=== PATIENT | female | born 1955 | race Caucasian/White ===

== ENCOUNTER 2016-11-17 10:46 | Observation (INO) | payer MEDICARE, MEDICAID ==
[~2016-11-17] VITALS: Ht 160 cm; Wt 111.4 kg
--- NOTE | ~2016-11-17 | DS ---
PATIENT'S NAME: BIMAL SCHROEDER [facility] AGE: 61 Y [address] ROOM: [place] [address] LOCATION: [facility] [place] ADMIT DATE: 11/17/2016 Discharge Summary DISCHARGE DATE: 11/19/2016 FAMILY PHYSICIAN: Chapo Powell MD ATTENDING PHYSICIAN: Chapo Powell FINAL DIAGNOSES: 1. Acute exacerbation of chronic obstructive pulmonary disease. 2. Hypoxemic respiratory failure secondary to acute exacerbation of chronic obstructive pulmonary disease. 3. Exogenous obesity. HOSPITAL COURSE: The patient was admitted for the above. Please see history and physical. Please see consult notes of Dr. Hauser, pole sander operator. The patient improved slowly. She is felt to reach maximal hospital benefit on 11/19/2016 and is dismissed to home. There she can have diet as tolerated and activities as tolerated. She was dismissed on the med list shown. She will see me back in the office in one week. Earlier if problems. CHAPO POWELL MD CALENDERING MACHINE OPERATOR/modl /[id number] d: 11/19/162014 t: 11/26/16 1033, DISCHARGE SUMMARY
--- NOTE | ~2016-11-17 | CON ---
PATIENT'S NAME: BIMAL SCHROEDER [facility] AGE: 61 Y [address] ROOM: [place] [address] LOCATION: [facility] [place] ADMIT DATE: 11/17/2016 Consultation DISCHARGE DATE: 11/19/2016 FAMILY PHYSICIAN: Chapo Anthony MD ATTENDING PHYSICIAN: Chapo Anthony DATE OF CONSULTATION: 11/17/2016 INDICATION: COPD exacerbation. HISTORY OF PRESENT ILLNESS: This is a 61-year-old female admitted for increased shortness of breath. She has a history of severe asthma and COPD, morbid obesity, and JASNO who reports worsening shortness of breath that started 2 weeks ago. She reports that it initially improved with increased DuoNeb use which she did on her own and then a few days ago things seemed to worsen after she had been exposed to her ill sister. She notes a very harsh dry cough with wheezing and a fever up to 100 the last 2 days. She notes that her oxygen saturations have been down to 88% at home. They are currently 91% to 92% on room air. PFTs performed last in November 2015 showed a mixture of obstructive and restrictive disease. She reports that she has only had one exacerbation since last year, which she was treated as an outpatient with prednisone. She reports that because of the illness symptoms, she has not been using her CPAP for the last few weeks. She otherwise is very faithful about using her CPAP. At home, she typically does Advair 250/50, DuoNeb twice a day, and albuterol twice a day. She denies any chest pain, lightheadedness, hemoptysis, or edema. PAST MEDICAL HISTORY: Severe asthma/COPD, morbid obesity, JASON, and nocturnal hypoxia. ALLERGIES: SEE MAR. MEDICATIONS: See MAR. FAMILY HISTORY: Negative for cardiac or lung disease. SOCIAL HISTORY: She is and lives here in [place]. She is a current every day smoker. She denies any alcohol use. REVIEW OF SYSTEMS: PATIENT'S NAME: BIMAL SCHROEDER [facility] AGE: 61 Y [address] ROOM: [place] [address] LOCATION: [facility] [place] ADMIT DATE: 11/17/2016 Consultation DISCHARGE DATE: 11/19/2016 FAMILY PHYSICIAN: Chapo Anthony MD ATTENDING PHYSICIAN: Chapo Anthony Twelve-point review of systems is negative except for what is noted in the HPI. PHYSICAL EXAMINATION: VITAL SIGNS: Blood pressure 112/75, pulse 68, respirations 22, temp 98.7. GENERAL: This is a 61-year-old morbidly obese female who is alert and oriented x3 and appears in no acute distress at the time of the exam. HEENT. Head: Normocephalic and atraumatic. Eyes: Clear. NECK: Supple. No adenopathy. No carotid bruits or JVD. LUNGS: With diffuse bilateral wheezing. HEART: Regular rate and rhythm without murmur, gallop, or rub. ABDOMEN: Soft, nontender, and nondistended. Bowel sounds x4. EXTREMITIES: No cyanosis, clubbing, or edema. DIAGNOSTIC DATA: No data is available currently as lab work is pending. ASSESSMENT: 1. Chronic obstructive pulmonary disease exacerbation most likely due to intercurrent illness with increased wheezing and shortness of breath. 2. Obstructive sleep. Usually on CPAP, but not able to tolerate it now due to #1. 3. Morbid obesity. PLAN: We will start IV steroids and antibiotic and check respiratory viral panel. Flu swab has been negative. We will hold off on CPAP usage for now due to illness. We will order bronchodilators around the clock and as needed for increased shortness of breath. She will otherwise continue with her inhaled corticosteroid and long-acting beta agonist. Further recommendations will be made pending her stay. Thank you for the consult and opportunity to participate in patient's care. MARY VARELA APRN FOR MD JOAQUIM COTE/cortes /[id number] d: 12/05/16 0002 t: 12/06/16 0742, CONSULTATION REPORT
[~2016-11-17 10:46] MED LIST: ADVAIR 250-501 EACH INH; ALEVE220 MG PO; CEFTIN500 MG PO; DALIRESP500 MCG PO; DELTASONE10 MG PO; DELTASONE20 M1 PO; DELTASONE20 MG PO; IPRAT-ALBUT 0.5-3 ML INH; ONE DAILY FOR1 EAC3 PO; OXYGEN INH; PROAIR HFA8.5 GM INH; SINGULAIR10 MG PO; SPIRIVA HANDIHA1 KIT INH; SPIRIVA18 MCG INH; TESSALON PERLE100 MG PO; ZITHROMAX250 MG PO
[2016-11-17] MEDS ORDERED: PROAIR HFA8.5 GM INH (11:46)
[2016-11-17] MEDS ORDERED: DUONEB INH (11:47)
[2016-11-17 17:37] LABS: BASOPHIL % 0.2 %; EOSINOPHIL % 0.1 %; HEMATOCRIT 47.2 % (33.0-46.0); HEMOGLOBIN 15.8 g/dL (10.0-15.0); IMMATURE GRANULOCYTE # 0.1 K/uL (0.0-0.3); IMMATURE GRANULOCYTE % 0.7 %; LYMPHOCYTE % 11.5 %; MCH 30.2 pg (27.0-34.0); MCHC 33.5 gm/dL (32.0-36.5); MCV 90.2 fl (83.0-98.0); MONOCYTE # 0.1 K/uL (0.0-1.0); MONOCYTE % 0.6 %; MPV 10.1 fl (9.4-12.4); NEUTROPHIL # (ANC) 7.8 K/uL (1.8-7.8); NEUTROPHIL % 86.9 %; NRBC % 0 /100WBC (0-0.00); PLATELET COUNT 255 K/uL (150-450); RBC 5.23 M/uL (3.50-5.50); RDW-CV 13.1 % (11.9-14.6)
[2016-11-17 18:04] LABS: ALBUMIN 3.6 gm/dL (3.5-5.0); CALCIUM 9.1 mg/dL (8.5-10.5); TOTAL BILIRUBIN 0.8 mg/dL (0.0-1.5); TOTAL PROTEIN 7.7 g/dL (6.0-8.4)
[2016-11-17 18:06] LABS: ANION GAP 11.4 (10.0-19.0); POTASSIUM 4.4 mMol/L (3.7-5.1)
[2016-11-19] MEDS ORDERED: ZITHROMAX250 MG PO (13:02)
[2016-11-19] MEDS ORDERED: DELTASONE10 MG PO (13:06)
[2016-11-19] MEDS ORDERED: PHENERGAN WITH480 ML PO (13:21)
== END 2016-11-19 14:30 | disposition disaster alternative care site (69) ==
LOC: GMSU 10:46
PROVIDERS: ADMIT Family Medicine
DX: J44.1 Chronic obstructive pulmonary disease with (acute) exacerbation (principal); J45.909 Unspecified asthma, uncomplicated; J18.9 Pneumonia, unspecified organism; J96.91 Respiratory failure, unspecified with hypoxia; E66.09 Other obesity due to excess calories; M54.9 Dorsalgia, unspecified; G47.33 Obstructive sleep apnea (adult) (pediatric); Z68.39 Body mass index [BMI] 39.0-39.9, adult; Z79.899 Other long term (current) drug therapy
CPT/HCPCS: G0378; G0379; J0456; J0696; J2920; J2930; J7040; J7050; J7512

== ENCOUNTER 2017-05-07 09:38 | Inpatient (IN) | payer MEDICARE, MEDICAID ==
[~2017-05-07] VITALS: Ht 162.6 cm; Wt 113.3 kg
--- NOTE | ~2017-05-07 | DS ---
PATIENT'S NAME: BIMAL SCHROEDER [facility] AGE: 61 Y [address] ROOM: [place] [address] LOCATION: [facility] [place] ADMIT DATE: 05/08/2017 Discharge Summary DISCHARGE DATE: 05/12/2017 FAMILY PHYSICIAN: Chapo Powell MD ATTENDING PHYSICIAN: Chapo Powell FINAL/DISCHARGE DIAGNOSES: 1. Respiratory failure secondary to acute pneumonitis, community-acquired, with a positive blood culture for Staphylococcus hominis and sepsis secondary to community-acquired pneumonitis. 2. Acute exacerbation of chronic obstructive pulmonary disease related to respiratory failure secondary to acute pneumonitis, community-acquired, with a positive blood culture for Staphylococcus hominis and sepsis secondary to community-acquired pneumonitis. 3. Morbid exogenous obesity. 4. Anxiety, chronic with acute exacerbation, health related. 5. Chronic major depression, in partial remission. 6. Asthma, moderate. HOSPITAL COURSE: This patient was admitted with acute respiratory failure, secondary to cough and what was thought to be an acute exacerbation of COPD. Her chest x-ray was not revealing, but sure enough her blood cultures were drawn and 1/2 bottles showed Staphylococcus hominis and no sign of MRSA. Sensitivity came back showing sensitivity to Rocephin. The patient was admitted originally and placed on IV Rocephin and IV Zithromax. She was given IV steroids, and because of her history of severe COPD and asthma, I asked for a consultation with Dr. Toi Pan, microsoft dynamics ax consultant. Please see his dictation in the chart and daily notes. The patient has reached maximal hospital benefit, is ambulating in the hallways on the day of dismissal, tolerating diet well, and her O2 saturations are normal on room air. She is, therefore, dismissed to home today on diet as tolerated, activity as tolerated, and the medication list shown including another 7 days worth of Ceftin 250 mg twice a day for 7 more days, and a tapering dose of oral steroids. She is to see me in the office in 1 week. She understands these discharge instructions. If she has increasing shortness of breath, or fever, she is to be seen back earlier. She understands. CHAPO POWELL MD PLUMBING ENGINEER/modl PATIENT'S NAME: BIMAL SCHROEDER [facility] AGE: 61 Y [address] ROOM: [place] [address] LOCATION: [facility] [place] ADMIT DATE: 05/08/2017 Discharge Summary DISCHARGE DATE: 05/12/2017 FAMILY PHYSICIAN: Chapo Powell MD ATTENDING PHYSICIAN: Chapo Powell /[id number] d: 05/12/17 1908 t: 06/06/17 0756, DISCHARGE SUMMARY
--- NOTE | ~2017-05-07 | CON ---
PATIENT'S NAME: ELDA [facility] AGE: 62 Y [address] ROOM: [place] [address] LOCATION: [facility] [place] ADMIT DATE: 05/08/2017 Consultation DISCHARGE DATE: 05/12/2017 FAMILY PHYSICIAN: Chapo Anthony MD ATTENDING PHYSICIAN: Chapo Anthony DATE OF CONSULTATION: 05/07/2017 REFERRING PHYSICIAN: Toi Pan MD INDICATION FOR CONSULTATION: Hypoxic respiratory failure. HISTORY OF PRESENTING ILLNESS: This is a 61-year-old female, who has a history of longstanding chronic obstructive pulmonary disease, severe in nature; chronic respiratory failure; who presented to her primary care's office complaining of shortness of breath and her O2 saturation was 87% on room air. She was using accessory muscles to breathe and had a respiratory rate in the mid 40s. The patient was evaluated in the emergency room by Dr. Lico Morales. The patient has been complaining of increasing shortness breath for the past 3- 4 days. The patient also complained of fever. Her cough has increased and she has complaint of increased expectoration of yellowish sputum. She denied any hemoptysis, pleurisy, nausea, vomiting, abdominal pain. The patient did have a pulmonary function test which was done in 2016 which reveals the patient has an FEV1 of 0.97 which is 38% predicted and she does have a mixed restrictive and obstructive disease. The patient was admitted to the hospital through the emergency department for pneumonia. She had an x-ray in the emergency department which revealed a right lower lobe infiltrate. PAST MEDICAL HISTORY: 1. Severe asthma/COPD. 2. Morbid obesity. 3. Obstructive sleep apnea. 4. Nocturnal hypoxia. PAST SURGICAL HISTORY: 1. Cholecystectomy. 2. Tubal ligation. 3. Appendectomy. FAMILY HISTORY: Colon cancer, hypertension, and pacemaker placement. Father with lung cancer. PATIENT'S NAME: [facility] AGE: 62 Y [address] ROOM: [place] [address] LOCATION: [facility] [place] ADMIT DATE: 05/08/2017 Consultation DISCHARGE DATE: 05/12/2017 FAMILY PHYSICIAN: Chapo Anthony MD ATTENDING PHYSICIAN: Chapo Anthony Sister has COPD. SOCIAL HISTORY: The patient has not smoked in 15 months. Denied any alcohol or illicit drug use. ALLERGIES: NO KNOWN DRUG ALLERGIES. MEDICATIONS: Please refer to the MAR. REVIEW OF SYSTEMS: A 10-point review of system was done and otherwise negative other than mentioned in history of presenting illness. PHYSICAL EXAMINATION: VITAL SIGNS: Her weight was 107.8 kg, blood pressure is 142/81, pulse is 109, respiratory rate is 26, temperature was 98.9, oxygen saturation was 85 on room air, 93% on 2 liters nasal cannula. HEENT: Eyes are nonicteric. Pupils equal, reactive to light and accommodation. Normocephalic, atraumatic. Wet mucous membranes. There is no ear or nasal discharge. Mallampati score is IV. NECK: Supple. No lymphadenopathy. No jugular venous distention. HEART: S1, S2. No murmurs, rubs, or gallops appreciated. LUNGS: Diminished air entry bilaterally with a very faint end-expiratory wheeze. ABDOMEN: Soft, nontender, no palpable organs. Distended positive bowel sounds. LOWER EXTREMITIES: No edema clubbing or cyanosis. MUSCULOSKELETAL: The patient moves all four extremities with no decrease in range of motion. SKIN: Warm and dry. No rash is noted. LABORATORY DATA: Chest x-ray was obtained. CBC was unremarkable. Coags are within normal limits. Her lactate is normal. CMP is unremarkable. LFTs were normal. EKG was obtained and interpreted, which shows sinus rhythm. Chest x-ray reveals mild cardiomegaly. No evidence of failure. There is a right lower lobe infiltrate which could be possibly atelectatic. IMPRESSION: 1. Hypoxic respiratory failure secondary to chronic obstructive pulmonary disease exacerbation. 2. Chronic obstructive pulmonary disease exacerbation. PATIENT'S NAME: BIMAL SCHROEDER [facility] AGE: 62 Y [address] ROOM: [address] [address] LOCATION: [facility] [place] ADMIT DATE: 05/08/2017 Consultation DISCHARGE DATE: 05/12/2017 FAMILY PHYSICIAN: Chapo Anthony MD ATTENDING PHYSICIAN: Chapo Anthony 3. Obstructive sleep apnea. RECOMMENDATIONS: 1. At the current point, I would recommend that the patient start on DuoNeb q.4 hours. 2. Albuterol q.2 as needed. 3. Aggressive pulmonary toilet. 4. Start the patient on ceftriaxone and azithromycin. 5. Solu-Medrol 60 mg q.6h. 6. Pulmonary rehabilitation. 7. Early ambulation. 8. We will follow up with you. Thank you for allowing me to participate in care of this patient. MD HAILY GIL/cortes /[id number] d: 05/30/17 0016 t: 06/05/17 1705, CONSULTATION REPORT
--- NOTE | ~2017-05-07 | HP ---
PATIENT'S NAME: [facility] AGE: 61 Y [address] ROOM: [place] [address] LOCATION: [facility] ADMIT DATE: 05/07/2017 History & Physical DISCHARGE DATE: FAMILY PHYSICIAN: JYOTI POWELL MD ATTENDING PHYSICIAN: JYOTI POWELL DATE OF SERVICE: 05/07/2017 CONTINUATION: CURRENT MEDICATIONS: Reviewed. ALLERGIES: NOTED. SOCIAL HISTORY: Does smoke. FAMILY HISTORY: Noncontributory. IMMUNIZATIONS: Up to date. OPERATIONS: See nurse's notes. REVIEW OF SYSTEMS: HEENT: She has had a runny nose and a little bit of a sore throat. LUNGS: As above. HEART: No recent chest pain with exertion. GI: Decreased appetite. No vomiting. No diarrhea. No melena. : No dysuria or frequency. EXTREMITIES: No new swelling or joint pain. NEUROLOGIC: No history of recent seizure or stroke. SKIN: No recent rashes. MENTAL STATUS: Anxious about health. PHYSICAL EXAM: GENERAL: Obese female, in moderate distress with wheezing and rhonchi in both lung caicedo. She is oriented to person, place, time, and competent. VITAL SIGNS: Noted per nurse's notes. Hypoxia noted, improved with O2 supplement. HEENT: Shows pupils react to light. TMs normal. Posterior pharynx clear. PATIENT'S NAME: ELDA [facility] AGE: 61 Y [address] ROOM: [place] [address] [facility] ADMIT DATE: 05/07/2017 History & Physical DISCHARGE DATE: FAMILY PHYSICIAN: JYOTI POWELL MD ATTENDING PHYSICIAN: JYOTI POWELL NECK: Unremarkable. LUNGS: Scattered rhonchi and wheezes bilaterally. CARDIAC: Shows heart sounds to be distant, regular rhythm. BREASTS: Not done. ABDOMEN: Benign without point tenderness or mass. PELVIC AND RECTAL: Not done. EXTREMITIES: Remarkable edema. Pulses full throughout. NEUROLOGIC: Shows cranial nerves intact. No lateralizing signs. MENTAL STATUS: Anxious about health. SKIN: No recent rashes noted. ASSESSMENT: 1. Acute exacerbation of chronic obstructive pulmonary disease. 2. Chronic smoker. 3. Chronic obstructive pulmonary disease, chronic. 4. Morbid exogenous obesity. 5. Anxiety about health. PLAN: As above. We will cover her for 24 hours with antibiotics. Give her IV steroids, get a pulmonary consult with Dr. Pan or Dr. Ortez and see how we do. MD CONSTANTINO HSU/cortes /[id number] D: 710 T: 849 HISTORY & PHYSICAL
--- NOTE | ~2017-05-07 | ER ---
PATIENT'S NAME: ELDA BIMAL [facility] AGE: 61 Y [address] ROOM: [place] [address] LOCATION: [facility] ADMIT DATE: 05/07/2017 ER/Outpatient Report DISCHARGE DATE: FAMILY PHYSICIAN: JYOTI ANTHONY MD ATTENDING PHYSICIAN: JYOTI ANTHONY TIME OF ARRIVAL: 0939 hours. TIME OF EVALUATION: 0941 hours. CHIEF COMPLAINT: Shortness of breath. HISTORY OF PRESENT ILLNESS: The patient is a 61-year-old female who presents to the emergency department today with a chief complaint of shortness of breath. She reports it started several days ago. It has gotten worse since yesterday. She has not been using her home O2 because she does not need it when she is resting. She reports she is having a productive cough. It is a whitish yellow color. She does report some mild chest pain as well with inspiration. She denies any back pain. No diarrhea. No headache. No nausea or vomiting. No abdominal pain. She is unsure as to whether she is having any fevers. Denies any current pain at this time, 0/10 in severity. PAST MEDICAL HISTORY: Severe asthma, COPD, morbid obesity, obstructive sleep apnea, nocturnal hypoxia, anxiety, depression, and gastroesophageal reflux disease. PAST SURGICAL HISTORY: Cholecystectomy, tubal ligation, and appendectomy. FAMILY HISTORY: Colon cancer, hypertension, and pacemaker placement. Father with lung cancer. Sister has COPD. SOCIAL HISTORY: The patient has not smoked in 15 months. Denies any alcohol or illicit drug use. ALLERGIES: NO KNOWN DRUG ALLERGIES. MEDICATIONS: PATIENT'S NAME: ELDA [facility] AGE: 61 Y [address] ROOM: [place] [address] LOCATION: [facility] ADMIT DATE: 05/07/2017 ER/Outpatient Report DISCHARGE DATE: FAMILY PHYSICIAN: JYOTI ANTHONY MD ATTENDING PHYSICIAN: JYOTI ANTHONY Please see list. REVIEW OF SYSTEMS: All systems are reviewed by myself and are negative with the exception of those discussed in the HPI and Past Medical History. PHYSICAL EXAMINATION: VITAL SIGNS: Weight 107.8 kg. Blood pressure 142/81, pulse 109, respiratory rate 26, temperature 98.9, and oxygen saturation 85% on room air. GENERAL: The patient is a 61-year-old female who appears older than stated age, obese, in respiratory distress. HEENT: Normocephalic, atraumatic. Pupils are equal, round, and reactive to light. NECK: Supple. There is no nuchal rigidity. CARDIOVASCULAR: Tachycardic. No murmurs, rubs, or gallops. LUNGS: With diffuse expiratory wheezes noted bilaterally. She is tachypneic. ABDOMEN: Soft, nontender, and nondistended. No rebound, rigidity, or guarding. MUSCULOSKELETAL: The patient moves all 4 extremities. SKIN: Warm and dry. LABORATORY AND X-RAY DATA: Labs and x-rays are obtained. CBC is unremarkable. Coags are normal. Lactate is normal. CMP is unremarkable. LFTs are normal. EKG is obtained, is interpreted by myself at 0959 hours, shows sinus rhythm with a rate of 75, left axis deviation, MN interval 213. Otherwise, normal interval. No ST elevation, ST depression, or T-wave inversions. Chest x-ray shows no acute process. Magnesium is normal. CK is normal. CK-MB is normal. Troponin is normal. ProBNP is normal. IMPRESSION: 1. Acute exacerbation of chronic obstructive pulmonary disease. 2. Acute on chronic hypoxic respiratory failure. 3. Acute respiratory distress. 4. Initial visit. EMERGENCY DEPARTMENT COURSE: The patient was brought back to the examination room. Seen and evaluated by myself. An IV was established. Laboratory analysis and imaging were obtained as described above. The patient was given 3 DuoNeb breathing treatments back to back to back. She was given a liter of normal saline IV. She was given 125 mg of Solu-Medrol IV. Another albuterol breathing treatment is repeated. I have discussed the case with the patient. I have recommended admission to the hospital for further evaluation, treatment, and management of this. The patient continues to have some respiratory distress. I have contacted Dr. PATIENT'S NAME: BIMAL SCHROEDER [facility] AGE: 61 Y [address] ROOM: [id number] [place], [place] [address] [facility] ADMIT DATE: 05/07/2017 ER/Outpatient Report DISCHARGE DATE: FAMILY PHYSICIAN: JYOTI ANTHONY MD ATTENDING PHYSICIAN: JYOTI ANTHONY. He does agree to accept the patient for further evaluation, treatment, and management. He has requested pulmonology consult as well. I have contacted Dr. Pan with Pulmonology at 1113 hours and discussed the case with him. He does report he will see the patient on the floor. DISPOSITION: The patient is admitted under the care of Dr. Anthony in conjunction with Dr. Pan in stable condition. DO LEANDRO GARCIA/yuniorl /[id number] d: 05/07/17 1254 t: 05/07/17 1519, OUTPATIENT REPORT
--- NOTE | ~2017-05-07 | CON ---
PATIENT'S NAME: BIMAL SCHROEDER [facility] AGE: 61 Y [address] ROOM: [place] [address] LOCATION: [facility] ADMIT DATE: 05/08/2017 Consultation DISCHARGE DATE: FAMILY PHYSICIAN: JYOTI POWELL MD ATTENDING PHYSICIAN: JYOTI POWELL REFERRING PHYSICIAN: Toi Pan MD REASON FOR CONSULTATION: Back pain. HISTORY OF PRESENT ILLNESS: This 61-year-old female is currently admitted to [facility] for shortness of breath. She is on IV antibiotics. She has had no fevers. She has had back pain off and on for 3 years, but it has been worse the past week or 2. It is to the right of the mid thoracic area. It does not wake her from sleep at night, but it hurts every day, worse with activity, relieved by rest. It hurts if she takes a deep breath. She was admitted to the hospital yesterday evening with shortness of breath, which had gotten worse. She has not been using her home oxygen because she does not feel she needs it. She has had a productive cough. She had blood cultures, which were showing chains of Gram-positive cocci. No nausea or vomiting. No abdominal pain. No dysuria or hematuria or fevers. Pain is dull and achy, it is just about the level of the upper abdomen or lower chest on the right side, not in the midline. There are no radicular symptoms. No bowel or bladder dysfunction. PAST MEDICAL HISTORY: Asthma, she has been on steroids; COPD; morbid obesity; sleep apnea; nocturnal hypoxia; anxiety; depression; and gastroesophageal reflux. PAST SURGICAL HISTORY: Cholecystectomy, tubal ligation, and appendectomy. FAMILY HISTORY: Colon cancer, hypertension, and pacemaker placement. Father with lung cancer. Sister has COPD. SOCIAL HISTORY: She stopped smoking several years ago. Prior to that, she smoked one pack per day. No recent alcohol or illicit drug use. ALLERGIES: NONE. MEDICATIONS: 1. Daliresp. 2. Dulera. PATIENT'S NAME: BIMAL SCHROEDER [facility] AGE: 61 Y [address] ROOM: [place] [address] LOCATION: [facility] ADMIT DATE: 05/08/2017 Consultation DISCHARGE DATE: FAMILY PHYSICIAN: JYOTI POWELL MD ATTENDING PHYSICIAN: JYOTI POWELL 3. Solu-Medrol. 4. Zithromax. 5. Albuterol inhaler. 6. Naprosyn. 7. Ambien. REVIEW OF SYSTEMS: No fevers. No nausea or vomiting. No dysuria or hematuria. No abdominal pain. No change in weight or malaise. No rashes. No auditory or visual hallucinations. PHYSICAL EXAMINATION: GENERAL: She is a morbidly obese female, 107.8 kg, blood pressure 142/81, pulse 100, respirations 18, temperature is 99, and O2 saturation is 85% on room air yesterday. HEENT: Atraumatic and normocephalic. PERRL. EOMI. TMs clear. Throat clear. NECK: Supple. CHEST: Tachycardic. No murmurs. Chest with expiratory wheezing. ABDOMEN: Soft, obese, and nontender without masses. MUSCULOSKELETAL: She moves all 4 extremities. Hips, knees, and ankles have no tenderness, swelling, or edema. Shoulders, elbows, and wrists without swelling or edema. She is mildly tender over the right lower chest and upper abdominal area. Not tender over the midline. She ambulates without limp. Leg length is equal. Pelvis level and knee alignment satisfactory. Straight leg-raising negative bilaterally. Sensation and motor function intact in lower extremity. Pulses good. Reflexes intact. DIAGNOSTIC DATA: CBC is without elevated white count. Hemoglobin is good. IMPRESSION: Right upper abdominal, thoracic, and back pain; chronic obstructive pulmonary disease, acute exacerbation; and chronic hypoxic respiratory failure. PLAN: I recommend x-rays of her thoracic spine. Her chest x-ray shows no infiltrates. Consider the possibility of pulmonary embolism. Pulmonary consultation has been requested. We will follow her up. MD JANAK PEPPER/cortes PATIENT'S NAME: BIMAL SCHROEDER [facility] AGE: 61 Y [address] ROOM: [place] [address] [facility] ADMIT DATE: 05/08/2017 Consultation DISCHARGE DATE: FAMILY PHYSICIAN: JYOTI POWELL MD ATTENDING PHYSICIAN: JYOTI POWELL /[id number] d: 05/08/175 t: 05/16/17 0958, CONSULTATION REPORT
--- NOTE | ~2017-05-07 | HP ---
PATIENT'S NAME: BIMAL SCHROEDER [facility] AGE: 61 Y [address] ROOM: [place] [id number] LOCATION: [facility] ADMIT DATE: 05/07/2017 History & Physical DISCHARGE DATE: FAMILY PHYSICIAN: JYOTI POWELL MD ATTENDING PHYSICIAN: JYOTI POWELL DATE OF SERVICE: CHIEF COMPLAINT: Shortness of breath and cough. 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 She came into my office today just prior to coming into the emergency room with her boyfriend. She was markedly short of breath and had an O2 saturation of 87% on room air. She was using accessory muscles to breathe, and had a respiratory rate of 24. She was sent to the emergency room and evaluated there by Dr. Lico Morales. The patient required three breathing treatments, and still was having trouble with shortness of breath and cough, and so she is admitted to the hospital at this time with an acute exacerbation of COPD. Her chest x-ray, per Dr. Morales, was negative. DICTATION ENDS HERE. MD RUFINA HSUR/modl /[id number] D: [id number] T: [id number] HISTORY & PHYSICAL
[~2017-05-07 09:38] MED LIST changes: +DUONEB INH; +PHENERGAN WITH480 ML PO
[2017-05-07 09:58] LABS: BASOPHIL # 0.1 K/uL (0.0-0.2); BASOPHIL % 0.8 %; BICARBONATE 27.9 mmol/L (18.0-23.0); EOSINOPHIL # 0.3 K/uL (0.0-0.5); EOSINOPHIL % 2.6 %; HEMATOCRIT 51.7 % (33.0-46.0); HEMOGLOBIN 17.3 g/dL (10.0-15.0); IMMATURE GRANULOCYTE % 0.4 %; LACTATE 1.6 mEq/L (0.50-1.60); LYMPHOCYTE # 2.2 K/uL (0.8-4.0); MCH 30.6 pg (27.0-34.0); MCHC 33.5 gm/dL (32.0-36.5); MCV 91.5 fl (83.0-98.0); MONOCYTE # 0.6 K/uL (0.0-1.0); MPV 10.2 fl (9.4-12.4); NEUTROPHIL # (ANC) 6.8 K/uL (1.8-7.8); NEUTROPHIL % 68.2 %; NRBC % 0 /100WBC (0-0.00); PCO2 44 mmHg (35-45); PLATELET COUNT 300 K/uL (150-450); PO2 155 mmHg (80-90); RBC 5.65 M/uL (3.50-5.50); RDW-CV 13.6 % (11.9-14.6)
[2017-05-07 10:07] LABS: INR - (THERAPEUTIC) 0.96 (0.92-1.07); PROTIME 10.1 SECONDS (9.8-11.4); PTT 28 SECONDS (25-32)
[2017-05-07 10:25] LABS: ALBUMIN 3.5 gm/dL (3.5-5.0); ALK PHOS 112 IU/L (33-138); ALT 23 IU/L (12-78); ANION GAP 12.1 (10.0-19.0); AST 14 IU/L (10-40); BLOOD UREA NITROGEN 15 mg/dL (6-24); CHLORIDE 106 mMol/L (96-110); CO2 26 mMol/L (22-32); CPK 45 IU/L (21-215); POTASSIUM 4.1 mMol/L (3.7-5.1); SODIUM 140 mMol/L (135-145); TOTAL BILIRUBIN 1.2 mg/dL (0.0-1.5); TOTAL PROTEIN 7.9 g/dL (6.0-8.4)
[2017-05-12] MEDS ORDERED: ATIVAN 1 MG1 MG PO (13:57)
[2017-05-12] MEDS ORDERED: CEFTIN500 MG PO (14:01)
[2017-05-12] MEDS ORDERED: DELTASONE20 MG PO (14:04)
== END 2017-05-12 14:20 | disposition disaster alternative care site (69) | DRG 871 ==
LOC: GMED 09:38 → GPCU 10:41 → GMSU 05-11 01:04
PROVIDERS: Emergency Medicine; ADMIT Family Medicine
DX: A40.9 Streptococcal sepsis, unspecified (principal); J96.21 Acute and chronic respiratory failure with hypoxia; J18.9 Pneumonia, unspecified organism; J44.1 Chronic obstructive pulmonary disease with (acute) exacerbation; Z68.41 Body mass index [BMI] 40.0-44.9, adult; J44.0 Chronic obstructive pulmonary disease with (acute) lower respiratory infection; J45.40 Moderate persistent asthma, uncomplicated; F17.210 Nicotine dependence, cigarettes, uncomplicated; F41.9 Anxiety disorder, unspecified; E66.01 Morbid (severe) obesity due to excess calories; G47.33 Obstructive sleep apnea (adult) (pediatric); K21.9 Gastro-esophageal reflux disease without esophagitis; F32.89 Other specified depressive episodes
CPT/HCPCS: G0378; J0456; J0696; J2920; J2930; J7030; J7040; J7050; J7512